=== PATIENT | female | born 1965 | race Caucasian/White ===

== ENCOUNTER 2020-05-08 12:34 | Emergency (ER) | payer BC ==
[2020-05-08] MEDS ORDERED: methylPREDNISolone Sodium Succinate 125 MG/2 ML SDV IM ONE (13:48)
--- NOTE | 2020-05-08 13:49 | EDM.PDOC ---
ED HPI GENERAL MEDICAL PROBLEM - General Chief Complaint: Back Pain or Injury Stated Complaint: BACK PAIN Time Seen by Provider: 05/08/20 13:35 Source of Information: Reports: Patient, Family History Limitations: Reports: No Limitations - History of Present Illness INITIAL COMMENTS - FREE TEXT/NARRATIVE: 54-year-old female with right lower back pain for the past 4 days. It started when she was bending forward pulling something out of the trunk of the vehicle. She felt a pull in her right lower back and it has been bothering her since. She felt some tingling going into her right leg so called her doctor and was told to come to the emergency room. No incontinence, significant paresthesias or weakness of the lower extremities. She has been taking ibuprofen with out si gnificant relief. Onset: Sudden (Pain started suddenly 5 days ago and has slowly worsened) Location: Reports: Back (Right lumbar back) Associated Symptoms: Denies: Confusion, Chest Pain, Cough, Nausea/Vomiting, Shortness of Breath Lower Back Pain Score (Numeric/FACES): 8 - Related Data Allergies Allergy/AdvReac Type Severity Reaction Status Date / Time ciprofloxacin [From Cipro] Allergy Cannot Verified 05/08/20 13:04 Remember Home Meds: Home Meds Ferrous Sulfate [Iron] 1 tab PO DAILY 05/08/20 [History] Zolpidem Tartrate [Ambien] 10 mg PO BEDTIME 05/08/20 [History] atorvaSTATin [Lipitor] 10 mg PO BEDTIME 05/08/20 [History] lisinopriL [Lisinopril] 5 mg PO DAILY 05/08/20 [History] metFORMIN [Glucophage] 1,000 mg PO BIDMEALS 05/08/20 [History] Past Medical History Cardiovascular History: Reports: High Cholesterol, Hypertension Endocrine/Metabolic History: Reports: Diabetes, Type II - Past Surgical History GI Surgical History: Reports: Bariatric Procedure Social & Family History - Tobacco Use Smoking Status *Q: Never Smoker - Caffeine Use Caffeine Use: Reports: Coffee - Recreational Drug Use Recreational Drug Use: No ED ROS GENERAL - Review of Systems Review Of Systems: See Below Constitutional: Reports: Malaise. Denies: Fever, Chills Respiratory: Denies: Shortness of Breath Cardiovascular: Denies: Chest Pain GI/Abdominal: Denies: Abdominal Pain Musculoskeletal: Reports: Back Pain ED EXAM,LOWER BACK PAIN/INJURY - Physical Exam Exam: See Below Exam Limited By: No Limitations General Appearance: Alert, No Apparent Distress (Looks uncomfortable but not distressed) Head: Atraumatic Respiratory/Chest: No Respiratory Distress, Lungs Clear Back Exam: Paraspinal Tenderness (Very sore to palpation along the right paralumbar area, worse with right rotation against resistance. She has limited flexion and extension ability of the lower back) Extremities: Normal Inspection Neurological: Alert, No Motor/Sensory Deficits (No straight leg raising deficits or radiculopathy, reflexes are brisk and symmetric) Psychiatric: Normal Affect, Normal Mood Skin Exam: Warm, Dry Course - Vital Signs Last Recorded V/S: Last Vital Signs Temp 96.8 F L 05/08/20 13:12 Pulse 80 05/08/20 13:12 Resp 16 05/08/20 13:12 BP 113/69 05/08/20 13:12 Pulse Ox 100 05/08/20 13:12 - Orders/Labs/Meds Meds: Medications Discontinued Medications Generic Name Dose Route Start Last Admin Trade Name Oscar PRN Reason Stop Dose Admin Methylprednisolone Sodium Succinate 125 mg 05/08/20 13:48 05/08/20 14:00 Solu-Medrol IM 05/08/20 13:49 125 mg ONETIME ONE Administration - Re-Assessments/Exams Free Text/Narrative Re-Assessment/Exam: 05/08/20 17:36 Patient was reassured she has no surgical emergency or neurologic deficit that needs immediate attention. She was given 10 Percocet to use for extra pain control and will recheck with her primary provider on Tuesday when she is home. She was also given 1 125 mg injection of Solu-Medrol. Departure - Departure Time of Disposition: 14:27 Disposition: Home, Self-Care Clinical Impression: Low back pain Qualifiers: Chronicity: acute Back pain laterality: right Sciatica presence: without sciatica Qualified Code(s): M54.5 - Low back pain - Discharge Information Instructions: Acute Back Pain, Adult Referrals: PCP,None [Primary Care Provider] - Forms: ED Department Discharge Care Plan Goals: Continue with ibuprofen on a regular basis, add Percocet as needed for stronger pain control and increase activity as tolerated. Recheck next week if not improving satisfactorily. Sepsis Event Note (ED) - Evaluation Sepsis Screening Result: No Definite Risk - Focused Exam Vital Signs: Vital Signs Temp Pulse Resp BP Pulse Ox 05/08/20 13:12 96.8 F L 80 16 113/69 100
== END 2020-05-08 14:27 | disposition home or self-care (01) ==
LOC: JP.ED 12:34
DX: M54.5 Low back pain (principal); I10 Essential (primary) hypertension; E11.9 Type 2 diabetes mellitus without complications; E78.00 Pure hypercholesterolemia, unspecified; Z88.1 Allergy status to other antibiotic agents; Z79.899 Other long term (current) drug therapy; Z79.84 Long term (current) use of oral hypoglycemic drugs; X50.1XXA Overexertion from prolonged static or awkward postures, initial encounter
CPT/HCPCS: 96372; 99283; J2930